=== PATIENT | female | born 1955 | race African-American/Black ===

== ENCOUNTER 2019-11-02 12:35 | Outpatient (CLI) | payer OTHER, SELFPAY ==
--- NOTE | 2019-11-05 09:42 | SLEEP_ITS ---
Home Sleep Study DATE OF STUDY: 11/02/2019 ORDERING PHYSICIAN: Elly Felton MD. REASON FOR THE STUDY: Hypersomnolence. HISTORY: This patient is a 63-year-old female, 5 feet 7 inches tall, weighing 225 pounds with a body mass index of 35.2. She has frequent loud snoring that it is loud enough that others complain about it. She occasionally awakens at night with heartburn, belching, or coughing. She rarely awakens from sleep feeling short of breath. She occasionally has trouble sleeping with a cold, rarely wakes up gasping for breath at night, and rarely has breathing problems reported to her by others. She occasionally sweats excessively at night. She rarely notices her heart pounding or beating irregularly at night, rarely falls asleep during the day, rarely falls asleep involuntarily, but never while driving. She rarely has loss of muscle tone with strong emotion. She rarely has daytime difficulties due to excessive sleepiness, rarely feels paralyzed on waking or falling asleep. She rarely has vivid dreamlike scenes upon awakening or falling asleep. She is never afraid to go to sleep. She rarely has nightmares. She occasionally remembers her dreams. She occasionally has racing thoughts, rarely feels sad, depressed, and occasionally has anxiety. She rarely has muscular tension, rarely notices parts of her body jerking or kicking at night, never has crawly achy feelings in the legs. She rarely has leg pain at night, rarely has morning jaw pain. She occasionally grinds her teeth at night. She rarely is bothered by pain during the day or at night. She rarely wakes up feeling stiff in the morning with sore achy muscles or neck or spine pain. Bedtime is 12 p.m. taking 15 minutes to fall asleep, waking once at night for less than 5 minutes to go to the bathroom. She awakens at 5 a.m. On the weekends, she will stay up 2 hours later and wake 3 hours later. She does take naps. A short nap may be refreshing. Most of the time she feels good in the morning. MEDICAL COMORBIDITIES: Asthma, gastroesophageal reflux disease, hypertension, diabetes, tonsillectomy, history of ovarian cyst. MEDICATIONS: 1. Metformin 500 mg 2 tablets b.i.d. 2. Omeprazole 40 mg a day. 3. Diltiazem CD 360 mg a day. 4. Chlorthalidone 25 mg a day. 5. Losartan 100 mg a day. 6. Pred Forte 1% eyedrops, right eye once a day. 7. Vitamin D 50,000 units monthly. 8. Azopt eyedrops for pressure twice a day. 9. Pravastatin 20 mg a day. 10. ProAir HFA 90 mcg 2 puffs q.6 hours p.r.n. shortness of breath. 11. Glyburide 2.5 mg before breakfast. 12. Trulicity 1 injection weekly. 13. Singulair 10 mg 1 daily. HABITS: Never smoked tobacco. Caffeine, 1 or 2 per day. No alcohol. DESCRIPTION OF THE STUDY: On the Tyro Sleepiness Scale, her score is 8. This was conducted as an unattended type III portable home sleep test using 4-channel monitoring with respiratory effort channel, snoring channel, oxygen saturation channel, and heart rate channel. This study was scored using [facility] guidelines. Duration was 6 hours 27 minutes. The apnea-hypopnea index is 3. RDI is 6.6. Lowest desaturation 90%. She had 5 apneas which were central, 13 hypopneas, 24 snoring events, and 17 desaturations with 0 time spent below 88% saturation. Pulse ranged from 65-99. IMPRESSION: This home sleep test does not show evidence of significant sleep-disordered breathing. The apnea-hypopnea index is 2.8, minimum saturation 90% and 17 desaturations, but no time spent below 88%. Heart rate was in the normal range. If clinical suspicion remains high, consider a formal sleep study in the sleep lab, which is more accurate. One disadvantage of a home sleep test is that the actual amount of sleep is not determined. The am
== END 2019-11-02 12:36 | disposition home or self-care (01) ==
LOC: ANHCSM 12:36
PROVIDERS: PCP Family Medicine; Visit Provider Internal Medicine Critical Care Medicine
DX: G47.10 Hypersomnia, unspecified (principal)
CPT/HCPCS: 95806

== ENCOUNTER → 2021-07-03 10:55 | Outpatient (CLI) | payer MEDICARE, SELFPAY ==
--- NOTE | ~2021-07-03 | MM_ITS ---
EXAMINATION: MM screening biju BI w hilda HISTORY: Screening mammogram TECHNIQUE: Craniocaudal and mediolateral oblique 3-D tomosynthesis images were obtained and synthetic 2-D images were generated. CAD analysis was submitted and interpreted. COMPARISON: 03/15/2016, 08/31/2009 bilateral screening mammogram examinations BREAST PARENCHYMAL COMPOSITION: There are scattered areas of fibroglandular density. FINDINGS: Multiple scattered bilateral benign calcifications. There is no evidence of suspicious mass , calcification, or architectural distortion to suggest malignancy in either breast. There has been n o suspicious interval change. IMPRESSION: 1. No mammographic evidence of malignancy. 2. Recommend routine screening mammography in one year. BI-RADS Category 2: Benign finding(s). Reviewed, dictated and finalized at location A.
--- NOTE | ~2021-07-03 | DEXA_ITS ---
Bone Density Report Name: MALIA CRAFT Age: 65 Sex: Female Ethnicity: Black Date of : 1955 Indication: postmenopausal; screening for osteoporosis; height loss; history of glucocorticoids; asthma or emphysema; Referring Provider: AARON DSOUZA Study: Bone densitometry was performed. Exam Date: July 03, 2021 Accession number: [id number] Bone Density: Region BMD T-score Z-score Classification AP Spine (L1-L4) 0.983 -0.6 0.5 Normal Femoral Neck (Left) 0.766 -0.8 0.0 Normal Total Hip (Left) 0.863 -0.7 -0.1 Normal Femoral Neck (Right) 0.833 -0.1 0.5 Normal Total Hip (Right) 0.861 -0.7 -0.1 Normal Total Hip Mean 0.862 -0.7 -0.1 Normal World Health Organization criteria for BMD impression classify patients as: Normal (T-score at or above -1.0), Osteopenia (T-score between -1.0 and -2.5), or Osteoporosis (T-score at or below -2.5). 10-year Fracture Risk: FRAX not reported because: All T-scores for Spine Total, Hip Total, Femoral Neck at or above -1.0 Previous Exams: Region Exam Age BMD T-score BMD Change BMD Change Date g/cm2 vs Baseline vs Previous AP Spine(L1-L4) 07/03/2021 65 0.983 -0.6 -0.091 -0.091 04/08/2008 52 1.074 0.2 Total Hip(Left) 07/03/2021 65 0.863 -0.7 -0.056 -0.056 04/08/2008 52 0.918 -0.2 Total Hip(Right) 07/03/2021 65 0.861 -0.7 -0.033 -0.033 04/08/2008 52 0.894 -0.4 *Denotes significance at 95% confidence level, LSC for AP Spine = 0.022 g/cm2, LSC for Total Hip = 0.027 g/cm2 Clinical Information Provided by Patient: Has taken Glucocorticoids Has used the following medications: Vitamin D Has the following medical conditions: Asthma or Emphysema Patient maximum height was 67 Menopause Age: 50 No regular weight bearing exercise Drinks caffeinated beverages Onset of menses at age 11 Number of children 0 Impression: The patient has normal bone mass. The patient has risk factors, including: history of glucocorticoid therapy. No significant bone loss was observed. Discussion: BONE DENSITY IS ABOVE THE MINIMUM DESIRABLE LEVEL AT ALL SKELETAL SITES TESTED. This patient?s bone mineral density is above the minimum desirable level (T-score -1.0 or better) at all sites measured. The patient should follow a healthful lifestyle (good nutrition with adequate calcium and vitamin D, and appropriate weight-bearing exercise). Follow-Up: Consider repeating this stud
== END ==
PROVIDERS: PCP Family Medicine; Visit Provider Obstetrics & Gynecology
DX: Z12.31 Encounter for screening mammogram for malignant neoplasm of breast (principal); Z78.0 Asymptomatic menopausal state
CPT/HCPCS: 77063; 77067; 77080

== ENCOUNTER → 2021-07-31 15:44 | Outpatient (CLI) | payer MEDICARE, SELFPAY ==
--- NOTE | ~2021-07-31 | US_ITS ---
EXAMINATION: US thyroid DATE: 07/31/2021 16:02 INDICATION: Nontoxic goiter, unspecified. TECHNIQUE: Multiple ultrasound images of the thyroid were obtained. COMPARISON: Thyroid ultrasound 12/10/2011 FINDINGS: The right thyroid lobe measures 4.4 x 1.4 x 1.5 cm. The left thyroid lobe measures 5.6 x 2.5 x 2.1 c m. In the left thyroid lobe, there is a 3.3 cm mixed cystic and solid, hypoechoic, qyoge-paim-fius n odule with smooth margin without echogenic foci (TI-RADS TR3), increased from 1.9 cm on 12/10/11. In t he right thyroid lobe, there is an 8 mm solid, hypoechoic, wbacf-zjkg-ohrw nodule with ill-defined ma rgin without echogenic foci (TR4). In the right thyroid lobe, there is a 7 mm solid, hypoechoic, wide r-than-tall nodule with ill-defined margin without echogenic foci (TR4). In the right thyroid lobe, t here is a 19 mm solid, hypoechoic, pustu-kzpk-succ nodule with ill-defined margin without echogenic f oci (TR4), stable from 12/10/11. IMPRESSION: 1. Multinodular goiter. Ultrasound-guided fine-needle aspiration of the 3.3 cm left thyroid nodule is recommended. Reviewed, dictated and finalized at location B.
== END ==
PROVIDERS: PCP Family Medicine; Visit Provider Obstetrics & Gynecology
DX: E04.2 Nontoxic multinodular goiter (principal)
CPT/HCPCS: 76536

== ENCOUNTER → 2021-10-11 14:13 | Outpatient (CLI) | payer MEDICARE, SELFPAY ==
--- NOTE | ~2021-10-11 | US_ITS ---
EXAMINATION: US soft tissue UE RT DATE: 10/11/2021 14:28 INDICATION: Chronic localized swelling, mass and lump at the right upper limb TECHNIQUE: Multiple grayscale and Doppler ultrasound images of the region of concern at the anterior ulnar aspect of the right wrist were obtained. COMPARISON: None FINDINGS: The palpable abnormality of concern corresponds to a 4.5 x 3.0 x 1.0 cm solid hypoechoic mass without increased internal as a phone color Doppler. The mass is isoechoic and with similar echotexture and septated architecture as the subcutaneous fat which would be consistent with and statistically most l ikely to represent a lipoma. No other masses identified. IMPRESSION: 1. Nonspecific 4.5 x 3.0 x 1.0 cm mass at the region of concern with appearance consistent with and s tatistically most likely to represent a lipoma particularly given the provided history of years of ch ronicity. If clinically indicated noncontrast CT could be obtained to confirm corresponding macroscop ic fat attenuation. Reviewed, dictated and finalized at location A. IMPRESSION: 1. Nonspecific 4.5 x 3.0 x 1.0 cm mass at the region of concern with appearance consistent with and statistically most likely to represent a lipoma particular ly given the provided history of years of chronicity. If clinically indicated n oncontrast CT could be obtained to confirm corresponding macroscopic fat attenu ation.
== END ==
PROVIDERS: PCP Family Medicine; Visit Provider Family Medicine
DX: R22.31 Localized swelling, mass and lump, right upper limb (principal)
CPT/HCPCS: 76882

== ENCOUNTER 2021-10-24 13:11 | Outpatient (CLI) | payer MEDICARE, SELFPAY ==
--- NOTE | ~2021-10-24 | US_ITS ---
EXAMINATION: US FNA w image guidance DATE: 10/24/2021 14:41 INDICATION: Nontoxic single thyroid nodule. TECHNIQUE: The procedure and its benefits and risks were discussed with the patient. Risks specifically discusse d included bleeding. The patient verbalized understanding of the risks and agreed to proceed. The nec k was prepped and draped in the usual sterile manner. 1% lidocaine was used for local anesthesia. 6 passes were made with a 25G needle into the lesion under ultrasound guidance. There were no immedia te complications. FINDINGS: Grayscale ultrasound images demonstrate needles advanced into a 3.6 cm nodule in left thyroid lobe fo r biopsy. IMPRESSION: 1. Ultrasound-guided fine needle aspiration of a left thyroid nodule. Reviewed, dictated and finalized at location A.
== END 2021-10-24 13:12 | disposition home or self-care (01) ==
PROVIDERS: PCP Family Medicine; Visit Provider Otolaryngology
DX: E04.1 Nontoxic single thyroid nodule (principal)
CPT/HCPCS: 10005; 88173; 88305

== ENCOUNTER → 2022-12-12 13:50 | Outpatient (CLI) | payer MEDICARE, SELFPAY ==
--- NOTE | ~2022-12-12 | XR_ITS ---
EXAMINATION: XR chest 2V DATE: 12/12/2022 14:12 INDICATION: Other forms of dyspnea. TECHNIQUE: Frontal and lateral views of the chest were obtained. COMPARISON: Chest 2 views 09/01/2018 FINDINGS: There is no pneumonia, pleural effusion, or pneumothorax. Cardiomegaly is noted. Calcified hilar and mediastinal lymph nodes are consistent with old granulomatous disease. IMPRESSION: 1. Cardiomegaly. Reviewed, dictated and finalized at location E. IMPRESSION: 1. Cardiomegaly.
== END ==
PROVIDERS: PCP Family Medicine; Visit Provider Nurse Practitioner Family
DX: R06.09 Other forms of dyspnea (principal); I51.7 Cardiomegaly
CPT/HCPCS: 71046

== ENCOUNTER → 2023-03-17 12:10 | Outpatient (CLI) | payer MEDICARE, SELFPAY ==
--- NOTE | ~2023-03-17 | MM_ITS ---
EXAMINATION: MM screening biju BI w hilda HISTORY: Screening mammogram TECHNIQUE: Craniocaudal and mediolateral oblique 3-D tomosynthesis images were obtained and synthetic 2-D images were generated. CAD analysis was submitted and interpreted. COMPARISON: 07/03/2021, 03/15/2016, 08/31/2009 BREAST PARENCHYMAL COMPOSITION: The breasts are heterogeneously dense, which may obscure small masses . FINDINGS: Scattered benign-appearing calcifications are present. No suspicious mass, calcification, o r architectural distortion are identified in either breast to suggest malignancy. There has been no s uspicious interval change. IMPRESSION: 1. No mammographic evidence of malignancy. 2. Recommend routine screening mammography in one year. BI-RADS Category 2: Benign finding(s). Reviewed, dictated and finalized at location A. AL LEAD
== END ==
PROVIDERS: PCP Family Medicine; Visit Provider Registered Nurse
DX: Z12.31 Encounter for screening mammogram for malignant neoplasm of breast (principal)
CPT/HCPCS: 77063; 77067

== ENCOUNTER 2024-03-17 10:36 | Outpatient (CLI) | payer MEDICARE, SELFPAY ==
--- NOTE | ~2024-03-17 | XR_ITS ---
Right Shoulder Technique: AP and scapular Y views were obtained. Clinical History: Pain Findings: No fracture or dislocation is seen. Osseous alignment is anatomic. The glenohumeral joint i s intact. There is mild AC joint degenerative change. Soft tissues are unremarkable. Impression: Mild AC joint degenerative change. Reviewed, dictated and finalized at [facility]. WRITING EXPERT Impression: Mild AC joint degenerative change.
== END 2024-03-17 10:37 | disposition home or self-care (01) ==
PROVIDERS: PCP Family Medicine; Visit Provider Family Medicine
DX: M19.011 Primary osteoarthritis, right shoulder (principal)
CPT/HCPCS: 73030